=== PATIENT | male | born 1990 ===

== ENCOUNTER 2018-09-19 10:01 | Outpatient (CLI) | payer BC ==
--- NOTE | 2018-09-19 15:39 | Diagnostic Imaging Report ---
Indication: Left flank pain, history of urinary stone disease Technique: Grayscale and duplex images of the kidneys, retroperitoneum, and bladder were obtained. Comparison: none Findings: Right kidney measures 10.5 cm in length. Left kidney measures 10.8 cm in length. Both kidneys demonstrate normal echogenicity. No hydronephrosis. Small cysts are seen in the left kidney. 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 Normal inferior vena cava. Bladder is normal. 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 Small left renal cysts incidentally noted
== END 2018-09-19 12:01 | disposition home or self-care (01) ==
LOC: ULS 10:01
DX: N28.1 Cyst of kidney, acquired (principal)
CPT/HCPCS: 76770